=== PATIENT | male | born 1945 | race Caucasian/White ===

== ENCOUNTER 2021-09-20 07:30 | Emergency (ER) | payer MEDICARE ==
[2021-09-20] MEDS ORDERED: Bisacodyl 10 MG Supp RECTAL ONE ×2 (08:25)
== END 2021-09-20 11:09 | disposition home or self-care (01) ==
LOC: JP.ED 07:30
DX: K59.00 Constipation, unspecified (principal); J44.9 Chronic obstructive pulmonary disease, unspecified; E11.9 Type 2 diabetes mellitus without complications; Z72.0 Tobacco use; Z79.82 Long term (current) use of aspirin; Z79.899 Other long term (current) drug therapy; Z79.84 Long term (current) use of oral hypoglycemic drugs
CPT/HCPCS: 36415; 74022; 74022-26; 80053; 85025; 99283; 99283-25; A9270-GY